=== PATIENT | female | born 1980 | race Caucasian/White ===

== ENCOUNTER 2022-12-04 15:59 | Emergency (ER) | payer SELFPAY ==
[~2022-12-04] VITALS: Ht 154.9 cm; Wt 96.2 kg
--- NOTE | 2022-12-04 16:09 | NUR ---
EKG 1606
--- NOTE | 2022-12-04 16:24 | NUR ---
RECEIVED VERBAL FROM JOSSELINE HYLTON FOR STROKE PROTOCOL FOR SEVERE HEADACHE NO STROKE ALERT
[2022-12-04 16:48] LABS: BASOPHILS # (AUTO) 0.1 X10'3 (0-0.2); EOSINOPHILS # (AUTO) 0.2 X10'3 (0-0.9); EOSINOPHILS % (AUTO) 1.4 % (0-6); HEMATOCRIT 39.1 % (35.0-45.0); HEMOGLOBIN 13.1 g/dl (12.0-16.0); LYMPHOCYTES # (AUTO) 3.4 X10'3 (1.1-4.8); LYMPHOCYTES % (AUTO) 30.8 % (21-51); MEAN CORPUSCULAR HEMOGLOBIN 30.4 PG (27.0-31.0); MEAN CORPUSCULAR HGB CONC 33.4 g/dL (33.0-36.5); MEAN PLATELET VOLUME 8.2 FL (7.4-10.4); MONOCYTES # (AUTO) 0.7 X10'3 (0-0.9); MONOCYTES % (AUTO) 6.8 % (2-12); NEUTROPHILS # (AUTO) 6.6 X10'3 (1.8-7.7); PLATELET COUNT 317 X10'3 (140-440); RED CELL DISTRIBUTION WIDTH 13.1 % (11.5-14.5)
[2022-12-04] MEDS ORDERED: cloNIDine 0.1 mg tablet PO ONE (16:50)
[2022-12-04] MEDS ORDERED: ondansetron 4mg rapidly disintigrating tab PO ONE (16:50)
[2022-12-04] MEDS ORDERED: LORazepam 1 MG tablet PO ONE (16:50)
[2022-12-04 16:54] LABS: APTT 26 SECONDS (22-32)
[2022-12-04 16:56] LABS: ALANINE AMINOTRANSFERASE 22 U/L (12-78); ALBUMIN 3.1 G/DL (3.4-5.0); ALBUMIN/GLOBULIN RATIO 0.8 (1.1-1.5); ALKALINE PHOSPHATASE 57 IU/L (46-116); ANION GAP 7 (8-16); ASPARTATE AMINO TRANSFERASE 13 U/L (10-37); BILIRUBIN,TOTAL 0.2 MG/DL (0.1-1.0); BLOOD UREA NITROGEN 12 MG/DL (7-18); BUN/CREATININE RATIO 19.4 (10.0-20.0); CALCIUM 8.6 MG/DL (8.5-10.1); CHLORIDE 104 MMOL/L (99-107); CREATININE 0.62 MG/DL (0.40-0.90); GLUCOSE 124 MG/DL (70-104); POTASSIUM 3.9 MMOL/L (3.5-5.1); SODIUM 139 MMOL/L (135-145); TOTAL CARBON DIOXIDE 28.3 MMOL/L (24-32); TOTAL PROTEIN 6.9 G/DL (6.4-8.2); eGFR > 90 ML/MIN
[2022-12-04] MEDS ORDERED: HYDROcodone/acetaminophen 5mg/325mg tablet PO ONE (17:45)
[2022-12-04 18:25] LABS: GLUCOSE,CSF 67 MG/DL (40-75); TOTAL PROTEIN,CSF 37 MG/DL (15-45)
--- NOTE | 2022-12-04 18:33 | NUR ---
PT FOUND LAYING ON HER RIGHT SIDE. EDUCATED PT ON THE IMPORTANCE OF LAYING FLAT POST LUMBAR PUNCTURE. PT VERBALIZED UNDERSTANDING OF INSTRUCTIONS AND IS NOW LAYING FLAT ON HER BACK.
[2022-12-04 18:35] LABS: APPEARANCE,CSF CLEAR; CSF SUPERNATANT COLOR PINK
[2022-12-04 18:36] LABS: CSF VOLUME 2.5 ML; TUBE# COUNTED 1
[2022-12-04 18:37] LABS: CSF RBC 1715 /CU MM (0)
[2022-12-04 18:40] LABS: APPEARANCE,CSF CLEAR; CSF SUPERNATANT COLOR PINK; CSF VOLUME 2.5 ML; TUBE# COUNTED 4
[2022-12-04 18:42] LABS: CSF RBC 2085 /CU MM (0); CSF WBC CT 3 /CU MM (0-5)
[2022-12-04 18:45] LABS: CSF WBC CT 2 /CU MM (0-5)
[2022-12-04 19:29] VITALS: BP 130/82
== END 2022-12-04 19:31 | disposition home or self-care (01) ==
LOC: ER 16:00
DX: I16.0 Hypertensive urgency (principal); I10 Essential (primary) hypertension; Z88.8 Allergy status to other drugs, medicaments and biological substances
CPT/HCPCS: 36415; 62270; 70450; 71045; 80053; 82945; 82948; 84157; 85025; 85610; 85730; 89051; 93005; 99285

== ENCOUNTER 2022-12-06 09:51 | Emergency (ER) | payer OTHER ==
[~2022-12-06] VITALS: Ht 154.9 cm; Wt 90.0 kg
[2022-12-06] MEDS ORDERED: normal saline 1000ML IV soln IVB ONE (10:15)
[2022-12-06] MEDS ORDERED: ondansetron/PF 4mg/2ml inj IV ONE (10:15)
[2022-12-06 10:54] LABS: BASOPHILS # (AUTO) 0.1 X10'3 (0-0.2); BASOPHILS % (AUTO) 0.9 % (0-1); EOSINOPHILS % (AUTO) 0.3 % (0-6); HEMATOCRIT 41.4 % (35.0-45.0); LYMPHOCYTES # (AUTO) 2.4 X10'3 (1.1-4.8); LYMPHOCYTES % (AUTO) 23.8 % (21-51); MEAN CORPUSCULAR HEMOGLOBIN 30.7 PG (27.0-31.0); MEAN CORPUSCULAR HGB CONC 33.8 g/dL (33.0-36.5); MEAN CORPUSCULAR VOLUME 90.8 FL (78-98); MEAN PLATELET VOLUME 8.2 FL (7.4-10.4); MONOCYTES # (AUTO) 0.6 X10'3 (0-0.9); MONOCYTES % (AUTO) 6.1 % (2-12); NEUTROPHILS % (AUTO) 68.9 % (42-75); PLATELET COUNT 320 X10'3 (140-440); RED BLOOD COUNT 4.56 X10'6 (4.20-5.60); WHITE BLOOD COUNT 10.1 X10'3 (4.5-11.0)
[2022-12-06] MEDS ORDERED: HYDROcodone/acetaminophen 10/325mg tab PO ONE (11:10)
[2022-12-06 11:14] LABS: ALANINE AMINOTRANSFERASE 24 U/L (12-78); ALBUMIN 3.5 G/DL (3.4-5.0); ALBUMIN/GLOBULIN RATIO 0.9 (1.1-1.5); ALKALINE PHOSPHATASE 60 IU/L (46-116); ANION GAP 10 (8-16); ASPARTATE AMINO TRANSFERASE 15 U/L (10-37); BILIRUBIN,TOTAL 0.3 MG/DL (0.1-1.0); BLOOD UREA NITROGEN 10 MG/DL (7-18); BUN/CREATININE RATIO 14.9 (10.0-20.0); CALCIUM 9.2 MG/DL (8.5-10.1); CHLORIDE 103 MMOL/L (99-107); CREATININE 0.67 MG/DL (0.40-0.90); GLUCOSE 99 MG/DL (70-104); POTASSIUM 3.7 MMOL/L (3.5-5.1); SODIUM 139 MMOL/L (135-145); TOTAL CARBON DIOXIDE 26.5 MMOL/L (24-32); TOTAL PROTEIN 7.5 G/DL (6.4-8.2); eGFR > 90 ML/MIN
[2022-12-06] MEDS ORDERED: HYDR-3972 PO ×2 (13:40→14:03)
[2022-12-06 14:34] VITALS: BP 137/67
== END 2022-12-06 15:24 | disposition home or self-care (01) ==
LOC: ER 09:52
DX: G97.1 Other reaction to spinal and lumbar puncture (principal); R11.2 Nausea with vomiting, unspecified; I10 Essential (primary) hypertension; Z79.899 Other long term (current) drug therapy; Z88.8 Allergy status to other drugs, medicaments and biological substances
CPT/HCPCS: 36415; 80053; 85025; 96361; 96374; 99283; J2405; J7030

== ENCOUNTER 2023-04-07 13:25 | Emergency (ER) | payer SELFPAY ==
[~2023-04-07] VITALS: Ht 154.9 cm; Wt 90.0 kg
[2023-04-07 13:44] VITALS: BP 140/89; PULSE 82; RESP 18; TEMP 97.6; O2SAT 96
[2023-04-07] MEDS ORDERED: DOXY100C77 PO (15:11)
== END 2023-04-07 15:23 | disposition home or self-care (01) ==
LOC: ER 13:25
DX: L03.211 Cellulitis of face (principal); I10 Essential (primary) hypertension; Z88.8 Allergy status to other drugs, medicaments and biological substances; Z79.899 Other long term (current) drug therapy
CPT/HCPCS: 99283